=== PATIENT | female | born 1990 | race African-American/Black ===

== ENCOUNTER 2017-04-26 16:17 | Emergency (ER) | payer BC ==
[~2017-04-26] VITALS: Ht 157.5 cm; Wt 133.6 kg
[2017-04-26 16:50] LABS: HEMATOCRIT 36.2 % (36.0-46.0); HEMOGLOBIN 11.7 G/DL (11.9-15.5); MCHC 32.3 G/DL (30.0-36.0); MCV 80.4 FL (83-99); PLATELET COUNT 361 K/uL (156-360); RBC DIS.WIDTH-SD 46.6 % (39-53); WHITE BLOOD COUNT 11.2 K/uL (4.1-10.2)
[2017-04-26 16:56] LABS: APPEARANCE SL.HAZY ((CLEAR)); BILIRUBIN NEGATIVE; BLOOD NEGATIVE; COLOR YELLOW ((YELLOW)); GLUCOSE (STRIP) NEGATIVE; KETONES NEGATIVE; LEUKOCYTES SMALL; NITRITE NEGATIVE; PROTEIN (STRIP) NEGATIVE; SPECIFIC GRAVITY 1.016 (1.000-1.030); UROBILINOGEN 0.2 MG/DL (0.2-1.0)
[2017-04-26 16:58] LABS: CHLORIDE 106 mEq/L (99-109); POTASSIUM 3.6 mEq/L (3.7-5.4); SODIUM 137 mEq/L (136-147)
[2017-04-26 16:58] LABS: BACTERIA RARE /HPF; EPITHELIAL CELLS 1+ /HPF; MUCUS TRACE /LPF; RED BLOOD CELLS 0-5 /HPF (0-5); UCUL ADDED? NO; WHITE BLOOD CELLS 0-5 /HPF (0-5)
[2017-04-26 17:00] LABS: GLUCOSE 89 mg/dL (70-99); TOTAL PROTEIN 7.8 g/dL (6.4-8.3)
[2017-04-26 17:02] LABS: TOTAL BILIRUBIN 0.5 mg/dL (0.0-1.0)
[2017-04-26 17:04] LABS: ALKALINE PHOSPHATASE 66 IU/L (3-129); CREATININE 0.7 mg/dL (0.6-1.3)
[2017-04-26 17:05] LABS: UREA NITROGEN (BUN) 8 mg/dL (9-23)
[2017-04-26 17:06] LABS: AST (GOT) 15 IU/L (2-34)
[2017-04-26 17:07] LABS: ALT (GPT) 13 IU/L (3-49)
[2017-04-26 17:13] LABS: QUANTITATIVE HCG < 4.0 MIU/ML
[2017-04-26 17:17] LABS: GFR ESTIMATE (CALCULATED) > 59 mL/min/
[2017-04-26 18:22] VITALS: BP 130/74
== END 2017-04-26 18:23 | disposition home or self-care (01) ==
LOC: EME 16:17
DX: K59.00 Constipation, unspecified (principal); R10.30 Lower abdominal pain, unspecified; Z87.440 Personal history of urinary (tract) infections; E11.9 Type 2 diabetes mellitus without complications
CPT/HCPCS: 74018; 80053; 81003; 84702; 85027; 99281; 99284